=== PATIENT | male | born 1985 | race Caucasian/White ===

== ENCOUNTER 2016-08-02 08:21 | Inpatient (IN) | payer OTHER ==
[2016-08-02 11:39] VITALS: BMI 22.8
--- NOTE | 2016-08-02 13:19 | HP ---
COWS - Scale Resting Pulse: 1= [place] 81-100 Sweatin=Flushed/Facial Moisture Restless Observation: 1= Difficult to Sit Still Pupil Size: 0= Normal to Room Light Bone or Joint Aches: 2= Severe Diffuse Aches Runny Nose/ Eye Tearin= Runny Nose/Eyes GI Upset > 30mins: 0= None Tremor Observation: 2= Slight Tremor Visible Yawning Observation: 2= >3x During Session Anxiety or Irritability: 2=Irritable/Anxious Goose Flesh Skin: 3=Piloerection COWS Score: 17 Admission ROS S - HPI Chief Complaint: I need to get cleaned and get my life together for my family. Allergies/Adverse Reactions: Allergies Allergy/AdvReac Type Severity Reaction Status Date / Time No Known Allergies Allergy Verified 08/02/16 11:52 History of Present Illness: pt is a 30yr old male with a history of heroin dependence seeking detox for treatment. Exam Limitations: No Limitations - Ebola screening Have you traveled outside of the country in the last 21 days: No Have you had contact with anyone from an Ebola affected area: No Have you been sick,other than usual withdrawal symptoms: No Do you have a fever: No - Review of Systems Constitutional: Chills, Diaphoresis, Changes in sleep EENT: reports: No Symptoms Reported Respiratory: reports: No Symptoms reported Cardiac: reports: No Symptoms Reported GI: reports: Nausea, Poor Appetite, Poor Fluid Intake : reports: No Symptoms Reported Musculoskeletal: reports: Back Pain, Joint Pain, Muscle Pain Integumentary: reports: Bruising, Flushing, Sweating, Other (abscess to left antecubital pt is currently on ABX) Neuro: reports: Headache, Tingling, Tremors Endocrine: reports: Excessive Sweating, Flushing, Intolerance to Cold, Intolerance to Heat Hematology: reports: No Symptoms Reported Psychiatric: reports: Judgement Intact, Mood/Affect Appropiate, Orientated x3, Agitated, Anxious Other Systems: Reviewed and Negative Patient History - Patient Medical History Hx Anemia: No Hx Asthma: No Hx Chronic Obstructive Pulmonary Disease (COPD): No Hx Cardiac Disorders: No Hx Congestive Heart Failure: No Hx Hypertension: No Hx Hypercholesterolemia: No Hx Pacemaker: No HX Cerebrovascular Accident: No Hx Seizures: No Hx Dementia: No Hx Diabetes: No Hx Gastrointestinal Disorders: No Hx Liver Disease: No Hx Genitourinary Disorders: No Hx Sexually Transmitted Disorders: No Hx Renal Disease (ESRD): No Hx Thyroid Disease: No Hx Human Immunodeficiency Virus (HIV): No (negative) Hx Hepatitis C: No (negative) Hx Depression: Yes Hx Suicide Attempt: No (denies) Hx Bipolar Disorder: No Hx Schizophrenia: No - Patient Surgical History Past Surgical History: Yes Hx Orthopedic Surgery: Yes (torn meniscus x2 rt knee) Anesthesia Reaction: No - PPD History Previous Implant?: Yes Documented Results: Negative w/proof Implanted On Prior R Admission?: No PPD to be Administered?: Yes - Reproductive History Patient is a Female of Child Bearing Age (11 -55 yrs old): No - Smoking Cessation Smoking history: Current every day smoker Have you smoked in the past 12 months: Yes Aproximately how many cigarettes per day: 20 Hx Chewing Tobacco Use: No Initiated information on smoking cessation: Yes 'Breaking Loose' booklet given: 08/02/16 - Substance & Tx. History Hx Substance Use: Yes Substance Use Type: Heroin, Marijuana - Substances Abused Heroin Route: Injection Frequency: Daily Amount used: 20-30 bags Age of first use: 23 Date of Last Use: 08/01/16 Marijuana/Hashish Route: Smoking Frequency: Daily Amount used: $40 Age of first use: 15 Date of Last Use: 07/26/16 Family Disease History - Family Disease History Family History: Denies Admission Physical Exam S - Vital Signs Vital Signs: Vital Signs - 24 hr 08/02/16 11:37 Temperature 96.4 F L Pulse Rate 64 Respiratory 20 Rate Blood Pressure 129/77 - Physical General Appearance: Yes: Appropriately Dressed, Moderate Distress, Tremorous, Irritable, Sweating, Anxious HEENTM: Yes: Normal Voice, Nasal Congestion Respiratory: Yes: Lungs Clear, Normal Breath Sounds, No Respiratory Distress Neck: Yes: No masses,lesions,Nodules Breast: Yes: Within Normal Limits Cardiology: Yes: Regular Rhythm, Regular Rate, S1, S2 Abdominal: Yes: Normal Bowel Sounds, Non Tender, Soft Genitourinary: Yes: Within Normal Limits Back: Yes: Normal Inspection Musculoskeletal: Yes: Back pain, Joint Stiffness Extremities: Yes: Normal Capillary Refill, Normal Inspection, Tremors Neurological: Yes: Fully Oriented, Alert, Normal Response Integumentary: Yes: Normal Color, Diaphoresis, Track Liu, Other (abscess to left antecubital) Lymphatic: Yes: Within Normal Limits - Diagnostic (1) Opioid dependence, uncomplicated Current Visit: Yes Status: Chronic (2) Nicotine dependence Current Visit: Yes Status: Chronic Qualifiers: Nicotine product type: cigarettes Substance use status: uncomplicated Qualified Code(s): F17.210 - Nicotine dependence, cigarettes, uncomplicated (3) Abscess Current Visit: Yes Status: Acute (4) Old torn meniscus of knee Current Visit: No Status: Resolved Qualifiers: Meniscus of knee: medial Laterality: right Comment: knee buckels at times d/t old torn meniscus Cleared for Admission [facility] - Detox or Rehab [facility] Level of Care: Medically Managed Detox Regimen/Protocol: Methadone [facility] Breath Alcohol Content Breath Alcohol Content: 0 Urine Drug Screen - Results Drug Screen Negative: No Urine Drug Screen Results: THC-Marijuana, OPI-Opiates, MDMA-Ecstasy
[2016-08-02] MEDS ORDERED: LOPERAMIDE HCL 2 MG CAPSULE PO PRN (13:35)
[2016-08-02] MEDS ORDERED: MAGNESIUM HYDROX 2400MG/30ML ORAL SUSPENSION 30 ML CUP PO PRN (13:35)
[2016-08-02] MEDS ORDERED: P-EPHED 60MG/TRIPROLIDI 2.5MG TABLET PO PRN (13:35)
[2016-08-02] MEDS ORDERED: ACETAMINOPHEN 325 MG TABLET (FP) PO PRN (13:35)
[2016-08-02] MEDS ORDERED: guaiFENesin/D-METHORPHAN HB 10 ML UNIT-DOSE CUPS PO PRN (13:35)
[2016-08-02] MEDS ORDERED: MAGNESIUM CITRATE 300 ML BOTTLE PO PRN (13:35)
[2016-08-02] MEDS ORDERED: MENTHOL/PHENOL 1 EACH UD MM PRN (13:35)
[2016-08-02] MEDS ORDERED: IBUPROFEN 400 MG TABLET (FP) PO PRN (13:35)
[2016-08-02] MEDS ORDERED: diphenhydrAMINE HCL 50 MG CAPSULE PO PRN (13:35)
[2016-08-02] MEDS ORDERED: MAG HYDROX/AL HYDROX/SIMETH 30 ML UNIT-DOSE CUP PO PRN (13:35)
[2016-08-02] MEDS ORDERED: METHADONE HCL 10 MG TABLET (FOR DETOX USE ONLY) PO ONE ×2 (14:00→23:00)
[2016-08-02] MEDS: diazePAM 5 MG TABLET PO PRN ×2 (14:34→18:55)
--- NOTE | 2016-08-02 14:49 | CONSULT ---
[facility] Psychiatric Consult - Data Date of interview: 08/02/16 Admission source: [facility] Identifying data: First admission to [facility] for this 30 y/o for this [place] -born male seeking detox treatment for marijuana and heroin dependence.Patient is single,a father of one,domiciled and employed. Substance Abuse History: - Smoking Cessation. Smoking history: Current every day smoker. Have you smoked in the past 12 months: Yes. Aproximately how many cigarettes per day: 20. Hx Chewing Tobacco Use: No. Initiated information on smoking cessation: Yes. 'Breaking Loose' booklet given: 08/02/16. - Substance & Tx. History. Hx Substance Use: Yes. Substance Use Type: Heroin, Marijuana. - Substances Abused. Heroin. Route: Injection. Frequency: Daily. Amount used: 20-30 bags. Age of first use: 23. Date of Last Use: 08/01/16. Marijuana/Hashish. Route: Smoking. Frequency: Daily. Amount used: $40. Age of first use: 15. Date of Last Use: 07/26/16. Confirmed by patient. Medical History: Remarkable for history of orthosurgery (torn meniscus/tearing of ACL in right knee). Psychiatric History: Patient denies. Physical/Sexual Abuse/Trauma History: Patient denies. Additional Comment: Urine Drug Screen Results: THC-Marijuana, OPI-Opiates, MDMA- Ecstasy.Noted. Mental Status Exam - Mental Status Exam Alert and Oriented to: Time, Place, Person Cognitive Function: Good Patient Appearance: Well Groomed Mood: Hopeful, Euthymic Affect: Appropriate, Normal Range Patient Behavior: Appropriate, Cooperative Speech Pattern: Clear, Appropriate (fluent in faroese) Voice Loudness: Normal Thought Process: Goal Oriented Thought Disorder: Not Present Hallucinations: Denies Suicidal Ideation: Denies Homicidal Ideation: Denies Insight/Judgement: Poor Sleep: Poorly, Difficulty falling asleep Appetite: Good Muscle strength/Tone: Normal Gait/Station: Normal Psychiatric Findings - Problem List ([place] 1, 2,3) (1) Opioid dependence, uncomplicated Current Visit: Yes Status: Acute (2) Nicotine dependence Current Visit: Yes Status: Acute Qualifiers: Nicotine product type: cigarettes Substance use status: uncomplicated Qualified Code(s): F17.210 - Nicotine dependence, cigarettes, uncomplicated (3) Marijuana dependence Current Visit: Yes Status: Acute (4) Ecstasy abuse Current Visit: Yes Status: Acute (5) Insomnia Current Visit: Yes Status: Acute - Initial Treatment Plan Initial Treatment Plan: Psychoeducation.Detoxification.Ambien 10 mg po hs prn.Patient is made aware of potential for parasomnias.He agrees with this careplan.Observation.
[2016-08-02 20:48] LABS: URINE APPEARANCE CLEAR; URINE BILIRUBIN NEGATIVE (NEGATIVE); URINE BLOOD NEGATIVE (NEGATIVE); URINE COLOR DKYELLOW; URINE GLUCOSE (UA) NEGATIVE (NEGATIVE); URINE KETONE TRACE (NEGATIVE); URINE LEUK ESTERASE NEGATIVE (NEGATIVE); URINE NITRITE NEGATIVE (NEGATIVE); URINE UROBILINOGEN 2.0 E.U/dl E.U./dl (0.2-1.0)
[2016-08-02 20:53] LABS: URINE PROTEIN 1+ (NEGATIVE)
[2016-08-02 21:00] LABS: CALCIUM OXALATE CRYSTALS RARE /hpf (NONE SEEN); URINE MUCUS MANY; URINE RBC 3 /hpf (0-3); URINE WBC 3 /hpf (3-5)
[2016-08-02] MEDS: ZOLPIDEM TARTRATE 10 MG TABLET (PARK CARE ONLY) PO PRN (22:46)
[2016-08-02] MEDS: CEPHALEXIN PO SCH (22:46)
[2016-08-02] MEDS: THIAMINE HCL 100 MG TABLET (FP) PO SCH (22:46)
[2016-08-02] MEDS: NAPROXEN 500 MG TABLET (FP) PO SCH (22:47)
[2016-08-03] MEDS: diazePAM 5 MG TABLET PO PRN ×5 (05:39→23:04)
[2016-08-03 08:35] LABS: HIV 1 & 2 AB NEGATIVE; HIV 1 AGp24 NEGATIVE
[2016-08-03] MEDS ORDERED: METHADONE HCL 10 MG TABLET (FOR DETOX USE ONLY) PO ONE (10:00)
[2016-08-03 10:12] LABS: MCH 31.5 pg (25.7-33.7); MCHC 33.9 g/dl (32.0-35.9); MEAN CELL VOLUME 92.9 fl (80-96); MEAN PLT VOLUME 9.9 fl (7.5-11.1); PLATELET COUNT 166 K/MM3 (134-434); RDW 12.6 % (11.9-15.9); WHITE BLOOD COUNT 8.1 K/mm3 (4.0-10.0)
[2016-08-03] MEDS: NAPROXEN 500 MG TABLET (FP) PO SCH ×2 (10:25→22:32)
[2016-08-03] MEDS: PRENATAL VITAMINS W/ FOLIC ACID TABLET (FP) PO SCH (10:25)
[2016-08-03] MEDS: CEPHALEXIN PO SCH ×2 (10:25→22:32)
[2016-08-03 10:42] LABS: ALBUMIN 3.8 g/dl (3.4-5.0); ALK PHOS 85 U/L (45-117); ANION GAP 10 (8-16); BILIRUBIN,TOTAL 0.4 mg/dL (0.2-1.0); CALCIUM 8.7 mg/dL (8.5-10.1); CO2 27 mmol/L (21-32); COCKROFT - GAULT 121.51; CREATININE 0.9 mg/dL (0.7-1.3); GLUCOSE,RANDOM 105 mg/dL (74-106); SGOT/AST 16 U/L (15-37); SGPT/ALT 21 U/L (12-78)
--- NOTE | 2016-08-03 12:21 | EKG ---
Test Reason : Blood Pressure : / mmHG Vent. Rate : 061 BPM Atrial Rate : 061 BPM P-R Int : 122 ms QRS Dur : 094 ms QT Int : 406 ms P-R-T Axes : 036 007 027 degrees QTc Int : 408 ms NORMAL SINUS RHYTHM NORMAL ECG NO PREVIOUS ECGS AVAILABLE Confirmed by MD SHARON, ELISHA ([id number]) on 08/03/2016 12:21:42 PM Referred By: Confirmed By:ELISHA HERRERA MD
[2016-08-03] MEDS: BACITRACIN 30 GM TUBE TOPICAL OINTMENT TP SCH ×2 (15:22→22:31)
[2016-08-03] MEDS ORDERED: NICOTINE POLACRILEX 2 MG GUM BUC PRN (15:36)
--- NOTE | 2016-08-03 15:42 | PN ---
S COWS - Scale Resting Pulse: 0= [place] 80 or Below Sweatin=Flushed/Facial Moisture Restless Observation: 1= Difficult to Sit Still Pupil Size: 0= Normal to Room Light Bone or Joint Aches: 2= Severe Diffuse Aches Runny Nose/ Eye Tearin= Nasal Congestion GI Upset > 30mins: 2= Nausea/Diarrhea Tremor Observation of Outstretched Hands: 2= Slight Tremor Visible Yawning Observation: 1= 1-2x During Session Anxiety or Irritability: 2=Irritable/Anxious Goose Flesh Skin: 3=Piloerection COWS Score: 16 BHS Progress Note (SOAP) Subjective: Tremors, H/A, Body aches, Interrupted Sleep, Sweating, Nausea, Diarrhea. Objective: PT. A & O X 3, OBSERVED AMBULATING ON UNIT. 08/03/16 15:39 Vital Signs Temperature 97.0 F L 08/03/16 13:24 Pulse Rate 74 08/03/16 13:24 Respiratory Rate 18 08/03/16 13:24 Blood Pressure 125/74 08/03/16 13:24 O2 Sat by Pulse Oximetry (%) Laboratory Last Values WBC 8.1 K/mm3 (4.0-10.0) 08/03/16 06:00 RBC 3.74 M/mm3 (4.00-5.60) L 08/03/16 06:00 Hgb 11.8 GM/dL (11.7-16.9) 08/03/16 06:00 Hct 34.8 % (35.4-49) L 08/03/16 06:00 MCV 92.9 fl (80-96) 08/03/16 06:00 MCHC 33.9 g/dl (32.0-35.9) 08/03/16 06:00 RDW 12.6 % (11.9-15.9) 08/03/16 06:00 Plt Count 166 K/MM3 (134-434) 08/03/16 06:00 MPV 9.9 fl (7.5-11.1) 08/03/16 06:00 Sodium 140 mmol/L (136-145) 08/03/16 06:00 Potassium 3.9 mmol/L (3.5-5.1) 08/03/16 06:00 Chloride 103 mmol/L (98-107) 08/03/16 06:00 Carbon Dioxide 27 mmol/L (21-32) 08/03/16 06:00 Anion Gap 10 (8-16) 08/03/16 06:00 BUN 14 mg/dL (7-18) 08/03/16 06:00 Creatinine 0.9 mg/dL (0.7-1.3) 08/03/16 06:00 Creat Clearance w eGFR > 60 (>60) 08/03/16 06:00 Random Glucose 105 mg/dL (74-106) 08/03/16 06:00 Calcium 8.7 mg/dL (8.5-10.1) 08/03/16 06:00 Total Bilirubin 0.4 mg/dL (0.2-1.0) 08/03/16 06:00 AST 16 U/L (15-37) 08/03/16 06:00 ALT 21 U/L (12-78) 08/03/16 06:00 Alkaline Phosphatase 85 U/L (45-117) 08/03/16 06:00 Total Protein 7.0 g/dl (6.4-8.2) 08/03/16 06:00 Albumin 3.8 g/dl (3.4-5.0) 08/03/16 06:00 Urine Color Dkyellow 08/02/16 15:45 Urine Appearance Clear 08/02/16 15:45 Urine pH 5.0 (5.0-8.0) 08/02/16 15:45 Ur Specific [place] >= 1.030 (1.005-1.025) H 08/02/16 15:45 Urine Protein 1+ (NEGATIVE) H 08/02/16 15:45 Urine Glucose (UA) Negative (NEGATIVE) 08/02/16 15:45 Urine Ketones Trace (NEGATIVE) H 08/02/16 15:45 Urine Blood Negative (NEGATIVE) 08/02/16 15:45 Urine Nitrite Negative (NEGATIVE) 08/02/16 15:45 Urine Bilirubin Negative (NEGATIVE) 08/02/16 15:45 Urine Urobilinogen 2.0 e.u/dl E.U./dl (0.2-1.0) 08/02/16 15:45 Ur Leukocyte Esterase Negative (NEGATIVE) 08/02/16 15:45 Urine RBC 3 /hpf (0-3) 08/02/16 15:45 Urine WBC 3 /hpf (3-5) 08/02/16 15:45 Ur Epithelial Cells Rare /hpf (FEW) 08/02/16 15:45 Calcium Oxalate Crystal Rare /hpf (NONE SEEN) 08/02/16 15:45 Urine Mucus Many 08/02/16 15:45 RPR Titer Nonreactive (NONREACTIVE) 08/03/16 06:00 HIV 1&2 Antibody Screen Negative 08/02/16 12:20 HIV P24 Antigen Negative 08/02/16 12:20 LABS NOTED. Assessment: 08/03/16 15:41 WITHDRAWAL SYMPTOMS. Plan: CONTINUE DETOX. BACITRACIN FOR TRACK LOUISE ON BILATERAL ARMS.
[2016-08-03] MEDS: NICOTINE 21 MG/24 HOURS TOPICAL PATCH TD SCH (17:48)
[2016-08-03] MEDS: THIAMINE HCL 100 MG TABLET (FP) PO SCH (22:32)
[2016-08-03] MEDS: ZOLPIDEM TARTRATE 10 MG TABLET (PARK CARE ONLY) PO PRN (22:34)
[2016-08-04] MEDS: diazePAM 5 MG TABLET PO PRN ×5 (05:59→23:18)
[2016-08-04] MEDS: BACITRACIN 30 GM TUBE TOPICAL OINTMENT TP SCH ×3 (07:17→22:22)
[2016-08-04] MEDS ORDERED: METHADONE HCL 5 MG TABLET (FOR DETOX USE ONLY) PO ONE (10:00)
[2016-08-04] MEDS: CEPHALEXIN PO SCH ×2 (10:29→22:22)
[2016-08-04] MEDS: NICOTINE 21 MG/24 HOURS TOPICAL PATCH TD SCH (10:30)
[2016-08-04] MEDS: PRENATAL VITAMINS W/ FOLIC ACID TABLET (FP) PO SCH (10:30)
[2016-08-04] MEDS: NAPROXEN 500 MG TABLET (FP) PO SCH ×2 (10:31→22:23)
[2016-08-04] MEDS: CYCLOBENZAPRINE HCL 10 MG TABLET (FP) PO PRN ×2 (12:20→22:25)
[2016-08-04] MEDS ORDERED: BACITRACIN 0.9 GM PACKET ONE (13:12)
--- NOTE | 2016-08-04 16:52 | PN ---
S COWS - Scale Resting Pulse: 0= [place] 80 or Below Sweatin=Flushed/Facial Moisture Restless Observation: 3= Extraneous Movement Pupil Size: 0= Normal to Room Light Bone or Joint Aches: 2= Severe Diffuse Aches Runny Nose/ Eye Tearin= Runny Nose/Eyes GI Upset > 30mins: 2= Nausea/Diarrhea Tremor Observation of Outstretched Hands: 2= Slight Tremor Visible Yawning Observation: 1= 1-2x During Session Anxiety or Irritability: 2=Irritable/Anxious Goose Flesh Skin: 0=Smooth Skin COWS Score: 16 S Progress Note (SOAP) Subjective: Tremor, chills, back spasm, anxious Objective: 08/04/16 16:50 Last Vital Signs Temp Pulse Resp BP Pulse Ox 96.7 F L 76 18 135/89 08/04/16 13:48 08/04/16 13:48 08/04/16 13:48 08/04/16 13:48 Laboratory Tests 08/02/16 08/02/16 08/03/16 12:20 15:45 06:00 WBC 8.1 RBC 3.74 L Hgb 11.8 Hct 34.8 L MCV 92.9 MCHC 33.9 RDW 12.6 Plt Count 166 MPV 9.9 Sodium Potassium Chloride Carbon Dioxide Anion Gap BUN Creatinine Creat Clearance w eGFR Random Glucose Calcium Total Bilirubin AST ALT Alkaline Phosphatase Total Protein Albumin Urine Color Dkyellow Urine Appearance Clear Urine pH 5.0 Ur Specific [place] >= 1.030 H Urine Protein 1+ H Urine Glucose (UA) Negative Urine Ketones Trace H Urine Blood Negative Urine Nitrite Negative Urine Bilirubin Negative Urine Urobilinogen 2.0 e.u/dl Ur Leukocyte Esterase Negative Urine RBC 3 Urine WBC 3 Ur Epithelial Cells Rare Calcium Oxalate Crystal Rare Urine Mucus Many RPR Titer HIV 1&2 Antibody Screen Negative HIV P24 Antigen Negative 08/03/16 08/03/16 06:00 06:00 WBC RBC Hgb Hct MCV MCHC RDW Plt Count MPV Sodium 140 Potassium 3.9 Chloride 103 Carbon Dioxide 27 Anion Gap 10 BUN 14 Creatinine 0.9 Creat Clearance w eGFR > 60 Random Glucose 105 Calcium 8.7 Total Bilirubin 0.4 AST 16 ALT 21 Alkaline Phosphatase 85 Total Protein 7.0 Albumin 3.8 Urine Color Urine Appearance Urine pH Ur Specific [place] Urine Protein Urine Glucose (UA) Urine Ketones Urine Blood Urine Nitrite Urine Bilirubin Urine Urobilinogen Ur Leukocyte Esterase Urine RBC Urine WBC Ur Epithelial Cells Calcium Oxalate Crystal Urine Mucus RPR Titer Nonreactive HIV 1&2 Antibody Screen HIV P24 Antigen Labs noted: Abnormal UA Assessment: 08/04/16 16:51 Withdrawal symptoms Noted with abnormal UA Plan: Continue detox Abnormal UA: encouraged to drink lots of water, repeat UA
[2016-08-04 21:31] LABS: URINE APPEARANCE CLEAR; URINE BILIRUBIN NEGATIVE (NEGATIVE); URINE BLOOD NEGATIVE (NEGATIVE); URINE COLOR YELLOW; URINE GLUCOSE (UA) NEGATIVE (NEGATIVE); URINE KETONE NEGATIVE (NEGATIVE); URINE LEUK ESTERASE NEGATIVE (NEGATIVE); URINE NITRITE NEGATIVE (NEGATIVE); URINE PROTEIN NEGATIVE (NEGATIVE); URINE UROBILINOGEN NEGATIVE E.U./dl (0.2-1.0)
[2016-08-04] MEDS: THIAMINE HCL 100 MG TABLET (FP) PO SCH (22:23)
[2016-08-04] MEDS: ZOLPIDEM TARTRATE 10 MG TABLET (PARK CARE ONLY) PO PRN (22:23)
[2016-08-05] MEDS: BACITRACIN 30 GM TUBE TOPICAL OINTMENT TP SCH ×2 (06:15→14:03)
[2016-08-05] MEDS: CYCLOBENZAPRINE HCL 10 MG TABLET (FP) PO PRN ×2 (06:54→17:34)
[2016-08-05] MEDS: diazePAM 5 MG TABLET PO PRN ×2 (06:54→11:52)
[2016-08-05] MEDS ORDERED: METHADONE HCL 5 MG TABLET (FOR DETOX USE ONLY) PO ONE (10:00)
[2016-08-05] MEDS: PRENATAL VITAMINS W/ FOLIC ACID TABLET (FP) PO SCH (10:24)
[2016-08-05] MEDS: NICOTINE 21 MG/24 HOURS TOPICAL PATCH TD SCH (10:25)
[2016-08-05] MEDS: CEPHALEXIN PO SCH ×2 (10:25→22:33)
[2016-08-05] MEDS: NAPROXEN 500 MG TABLET (FP) PO SCH ×2 (10:25→22:34)
--- NOTE | 2016-08-05 13:21 | PN ---
[facility] Progress Note (SOAP) Subjective: Tremors, H/A, Lower Back ache, Diarrhea, Stomach Cramping, Interrupted Sleep. Objective: PT. A & O X 3, OBSERVED AMBULATING ON UNIT. 08/05/16 13:19 Vital Signs Temperature 96.5 F L 08/04/16 22:31 Pulse Rate 58 L 08/05/16 09:56 Respiratory Rate 18 08/05/16 09:56 Blood Pressure 124/81 08/05/16 09:56 O2 Sat by Pulse Oximetry (%) Laboratory Tests 08/02/16 08/02/16 08/03/16 12:20 15:45 06:00 WBC 8.1 RBC 3.74 L Hgb 11.8 Hct 34.8 L MCV 92.9 MCHC 33.9 RDW 12.6 Plt Count 166 MPV 9.9 Sodium Potassium Chloride Carbon Dioxide Anion Gap BUN Creatinine Creat Clearance w eGFR Random Glucose Calcium Total Bilirubin AST ALT Alkaline Phosphatase Total Protein Albumin Urine Color Dkyellow Urine Appearance Clear Urine pH 5.0 Ur Specific [place] >= 1.030 H Urine Protein 1+ H Urine Glucose (UA) Negative Urine Ketones Trace H Urine Blood Negative Urine Nitrite Negative Urine Bilirubin Negative Urine Urobilinogen 2.0 e.u/dl Ur Leukocyte Esterase Negative Urine RBC 3 Urine WBC 3 Ur Epithelial Cells Rare Calcium Oxalate Crystal Rare Urine Mucus Many RPR Titer HIV 1&2 Antibody Screen Negative HIV P24 Antigen Negative 08/03/16 08/03/16 08/04/16 06:00 06:00 17:00 WBC RBC Hgb Hct MCV MCHC RDW Plt Count MPV Sodium 140 Potassium 3.9 Chloride 103 Carbon Dioxide 27 Anion Gap 10 BUN 14 Creatinine 0.9 Creat Clearance w eGFR > 60 Random Glucose 105 Calcium 8.7 Total Bilirubin 0.4 AST 16 ALT 21 Alkaline Phosphatase 85 Total Protein 7.0 Albumin 3.8 Urine Color Yellow Urine Appearance Clear Urine pH 6.0 Ur Specific [place] 1.015 Urine Protein Negative Urine Glucose (UA) Negative Urine Ketones Negative Urine Blood Negative Urine Nitrite Negative Urine Bilirubin Negative Urine Urobilinogen Negative Ur Leukocyte Esterase Negative Urine RBC Urine WBC Ur Epithelial Cells Calcium Oxalate Crystal Urine Mucus RPR Titer Nonreactive HIV 1&2 Antibody Screen HIV P24 Antigen LABS NOTED. Assessment: 08/05/16 13:19 WITHDRAWAL SYMPTOMS. Plan: CONTINUE DETOX. PRN IMMODIUM FOR DIARRHEA.
[2016-08-05] MEDS: hydrOXYzine PAMOATE 50 MG CAPSULE (FP) PO PRN ×2 (17:32→22:36)
[2016-08-05] MEDS: THIAMINE HCL 100 MG TABLET (FP) PO SCH (22:33)
[2016-08-05] MEDS: BACITRACIN 0.9 GM PACKET TP SCH (22:34)
[2016-08-06] MEDS: CYCLOBENZAPRINE HCL 10 MG TABLET (FP) PO PRN ×3 (05:59→22:35)
[2016-08-06] MEDS: BACITRACIN 0.9 GM PACKET TP SCH ×3 (05:59→22:16)
[2016-08-06] MEDS: hydrOXYzine PAMOATE 50 MG CAPSULE (FP) PO PRN (05:59)
[2016-08-06] MEDS ORDERED: METHADONE HCL 10 MG TABLET (FOR DETOX USE ONLY) PO ONE (10:00)
[2016-08-06] MEDS: PRENATAL VITAMINS W/ FOLIC ACID TABLET (FP) PO SCH (10:27)
[2016-08-06] MEDS: NAPROXEN 500 MG TABLET (FP) PO SCH ×2 (10:28→22:16)
[2016-08-06] MEDS: CEPHALEXIN PO SCH ×2 (10:28→22:34)
[2016-08-06] MEDS: NICOTINE 21 MG/24 HOURS TOPICAL PATCH TD SCH (10:28)
--- NOTE | 2016-08-06 12:30 | PN ---
BHS Progress Note (SOAP) Subjective: Sweating,interrupted sleep,restless Objective: 08/06/16 12:29 Vital Signs - 8 hr 08/06/16 08/06/16 06:25 09:41 Temperature 96.6 F L 96.8 F L Pulse Rate 52 L 75 Respiratory 16 18 Rate Blood Pressure 116/74 115/74 Laboratory Tests 08/02/16 08/02/16 08/03/16 12:20 15:45 06:00 WBC 8.1 RBC 3.74 L Hgb 11.8 Hct 34.8 L MCV 92.9 MCHC 33.9 RDW 12.6 Plt Count 166 MPV 9.9 Sodium Potassium Chloride Carbon Dioxide Anion Gap BUN Creatinine Creat Clearance w eGFR Random Glucose Calcium Total Bilirubin AST ALT Alkaline Phosphatase Total Protein Albumin Urine Color Dkyellow Urine Appearance Clear Urine pH 5.0 Ur Specific [place] >= 1.030 H Urine Protein 1+ H Urine Glucose (UA) Negative Urine Ketones Trace H Urine Blood Negative Urine Nitrite Negative Urine Bilirubin Negative Urine Urobilinogen 2.0 e.u/dl Ur Leukocyte Esterase Negative Urine RBC 3 Urine WBC 3 Ur Epithelial Cells Rare Calcium Oxalate Crystal Rare Urine Mucus Many RPR Titer HIV 1&2 Antibody Screen Negative HIV P24 Antigen Negative 08/03/16 08/03/16 08/04/16 06:00 06:00 17:00 WBC RBC Hgb Hct MCV MCHC RDW Plt Count MPV Sodium 140 Potassium 3.9 Chloride 103 Carbon Dioxide 27 Anion Gap 10 BUN 14 Creatinine 0.9 Creat Clearance w eGFR > 60 Random Glucose 105 Calcium 8.7 Total Bilirubin 0.4 AST 16 ALT 21 Alkaline Phosphatase 85 Total Protein 7.0 Albumin 3.8 Urine Color Yellow Urine Appearance Clear Urine pH 6.0 Ur Specific [place] 1.015 Urine Protein Negative Urine Glucose (UA) Negative Urine Ketones Negative Urine Blood Negative Urine Nitrite Negative Urine Bilirubin Negative Urine Urobilinogen Negative Ur Leukocyte Esterase Negative Urine RBC Urine WBC Ur Epithelial Cells Calcium Oxalate Crystal Urine Mucus RPR Titer Nonreactive HIV 1&2 Antibody Screen HIV P24 Antigen labs noted Assessment: 08/06/16 12:29 Withdrawal sx. Plan: Continue detox
[2016-08-06] MEDS ORDERED: ZOLPIDEM TARTRATE 10 MG TABLET (PARK CARE ONLY) PO PRN (22:00)
[2016-08-06] MEDS: THIAMINE HCL 100 MG TABLET (FP) PO SCH (22:16)
[2016-08-07] MEDS: CYCLOBENZAPRINE HCL 10 MG TABLET (FP) PO PRN (05:44)
[2016-08-07] MEDS ORDERED: METHADONE HCL 5 MG TABLET (FOR DETOX USE ONLY) PO ONE (06:00)
[2016-08-07] MEDS: BACITRACIN 0.9 GM PACKET TP SCH (06:31)
[2016-08-07 06:32] VITALS: BP 111/68; PULSE 62; TEMP 96.7
--- NOTE | 2016-08-07 13:27 | DS ---
[facility] Summary Admission Date: 08/02/16 Discharge Date: 08/07/16 - History Present History: Cannabis Dependence, Opioid Dependence Additional Comments: DETOX COMPLETED.ALERT O X 3. NAD Pertinent Past History: OLD TORN MENISCUS OF RIGHT KNEE ABSCESS - Physical Exam Results Vital Signs: Vital Signs Temperature 96.7 F L 08/07/16 06:31 Pulse Rate 62 08/07/16 06:31 Respiratory Rate 18 08/07/16 06:31 Blood Pressure 111/68 08/07/16 06:31 O2 Sat by Pulse Oximetry (%) Pertinent Admission Physical Exam Findings: WITHDRAWAL SX - Treatment Hospital Course: Detox Protocol Followed, Detoxed Safely, Responded well, Discharged Condition Good - Medication Discharge Medications: Ambulatory Orders Cephalexin [Keflex] 1,000 mg PO BID 08/02/16 Naproxen [Naprosyn -] 500 mg PO BID 08/02/16 - Diagnosis (1) Marijuana dependence Status: Acute (2) Nicotine dependence Status: Acute Qualifiers: Nicotine product type: cigarettes Substance use status: uncomplicated Qualified Code(s): F17.210 - Nicotine dependence, cigarettes, uncomplicated (3) Opioid dependence, uncomplicated Status: Acute (4) Abscess Status: Acute - AMA Did Patient Leave Against Medical Advice: No
== END 2016-08-07 09:05 | disposition home or self-care (01) | DRG 773 ==
LOC: YASAS 08:21 → Y3N 12:37
PROVIDERS: ADMIT Internal Medicine; ATTEND Internal Medicine
PROC: HZ2ZZZZ Detoxification Services for Substance Abuse Treatment (ICD-10-PCS; principal; 2016-08-02)
DX: F11.23 Opioid dependence with withdrawal (principal); F12.20 Cannabis dependence, uncomplicated; F16.10 Hallucinogen abuse, uncomplicated; F17.210 Nicotine dependence, cigarettes, uncomplicated; R82.90 Unspecified abnormal findings in urine; L02.414 Cutaneous abscess of left upper limb; G47.00 Insomnia, unspecified
CPT/HCPCS: 36415; 80053; 81003; 81015; 85027; 86593; 87389; 93005; 93010